=== PATIENT | male | born 1965 | race Caucasian/White ===

== ENCOUNTER → 2025-02-28 12:48 | Outpatient (REF) | payer OTHER, SELFPAY | LOC: DHSLP 12:48 | PROVIDERS: ATTENDING PHYSICIAN Family Medicine | DX: G47.33 Obstructive sleep apnea (adult) (pediatric) (principal) | CPT/HCPCS: 95800 ==

== ENCOUNTER → 2025-03-15 08:32 | Outpatient (REF) | payer SELFPAY | LOC: HWRAD 08:32 | PROVIDERS: ATTENDING PHYSICIAN Family Medicine | DX: E78.01 Familial hypercholesterolemia (principal) | CPT/HCPCS: 75571 ==

== ENCOUNTER → 2025-07-04 12:13 | Outpatient (REF) | payer OTHER, SELFPAY | LOC: RAD 12:13 | PROVIDERS: ATTENDING PHYSICIAN Family Medicine; FAMILY PHYSICIAN Family Medicine | DX: M79.671 Pain in right foot (principal); T14.90XA Injury, unspecified, initial encounter | CPT/HCPCS: 73590; 73630 ==